=== PATIENT | male | born 1995 | race Caucasian/White ===

== ENCOUNTER → 2016-10-02 | Outpatient (CLI) | payer BC ==
--- NOTE | 2016-10-02 09:28 | DIAGNOSTIC IMAGING REPORT ---
SINUS CT CT DOSE: 679.05 mGy.cm HISTORY: Pain CHRONIC SINUSITIS TECHNIQUE: Multiaxial CT images of the paranasal sinuses were performed and reformatted in the coronal plane without the use of contrast. COMPARISON: None. FINDINGS: Mild mucosal thickening of components of the deep and right maxillary sinus. Mild hyperplastic change left nasal turbinates. Remaining sinuses are clear. The mastoid air cells are clear. Mild narrowing of the right. Soft tissue occlusion of the left. The nasal septum is midline. The orbits are unremarkable. IMPRESSION: 1. 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 2. Mild soft tissue narrowing right ostiomeatal unit. 3. Mild scattered mucosal thickening of the right and to lesser extent left maxillary sinus. Electronically signed by: Doc Mcfadden M.D. 10/02/2016 9:27 AM Dictated Date/Time: 10/02/2016 9:25 AM
== END | disposition home or self-care (01) ==
LOC: C.CTS 09:13
PROVIDERS: ATTEND Otolaryngology
DX: J32.9 Chronic sinusitis, unspecified (principal); J34.89 Other specified disorders of nose and nasal sinuses